=== PATIENT | female | born 1975 | race Two or more races ===

== ENCOUNTER 2025-02-05 10:24 | Outpatient (RCR) | payer MEDICAID, SELFPAY | END 2025-02-09 23:59 | disposition home or self-care (01) | LOC: SCTC 10:24 | PROVIDERS: PCP Physician Assistant Medical; Referring Provider Physician Assistant Medical; Visit Provider Nurse Practitioner Family | DX: D57.3 Sickle-cell trait (principal); E61.1 Iron deficiency; E11.9 Type 2 diabetes mellitus without complications | CPT/HCPCS: 99212; G0463 ==